=== PATIENT | female | born 1945 | race Caucasian/White ===

== ENCOUNTER → 2020-06-02 12:49 | Outpatient (BNVA) | payer OTHER, SELFPAY | PROVIDERS: Visit Provider Nurse Practitioner Family | DX: J11.1 Influenza due to unidentified influenza virus with other respiratory manifestations (principal); J40 Bronchitis, not specified as acute or chronic | CPT/HCPCS: 87400 ==

== ENCOUNTER → 2020-07-16 09:50 | Outpatient (BNVA) | payer OTHER, SELFPAY | PROVIDERS: Visit Provider Emergency Medicine | DX: J40 Bronchitis, not specified as acute or chronic (principal); R05 Cough | CPT/HCPCS: 71046 ==

== ENCOUNTER 2021-02-08 10:19 | Inpatient (IN) | payer MEDICARE, SELFPAY ==
[2021-02-08] VITALS (7 sets, daily range): BP systolic 109–150; BP diastolic 46–85; PULSE 38–80; RESP 14–20; TEMP 37.1; O2SAT 92–96; BMI 46.2
--- NOTE | 2021-02-08 05:00 | USCV_ITS ---
Ilacole Malena Age: 75 Gender: F : 1945 Exam Date: 02/08/2021 21:12 Ordering Phys: Bashir Reynoso MD Technologist: Vira Koo [place] [facility] [place]ication: CHRISTA BP: / HR: 47 Rhythm: Sinus Technical Quality: Adequate MEASUREMENTS (Male / Female) Normal Values 2D ECHO LV Diastolic Diameter PLAX 3.7 cm 4.2 - 5.9 / 3.9 - 5.3 cm LV Systolic Diameter PLAX 2.1 cm LV Chamber Size 3.1 cm IVS Diastolic Thickness 1.7 cm 0.6 - 1.0 / 0.6 - 0.9 cm IVS Systolic Thickness 1.1 cm LVPW Diastolic Thickness 1.5 cm 0.6 - 1.0 / 0.6 - 0.9 cm LVPW Systolic Thickness 1.5 cm RV Chamber Size 3.5 cm LVOT Diameter 2.1 cm LV Ejection Fraction 2D Teich 75.8 % LV Ejection Fraction MOD 2C 23.9 % LV Ejection Fraction 2C AL 20.4 % LA Diameter 3.5 cm LA Width 4.3 cm LA Height 5.5 cm RA Width 3.4 cm RA Height 4.4 cm Aorta at Sinotubular Diameter 3.1 cm M-MODE LV Diastolic Diameter MM 4.8 cm 4.2 - 5.9 / 3.9 - 5.3 cm LV Systolic Diameter MM 3.1 cm LV Ejection Fraction MM Teich 66.3 % IVS Diastolic Thickness MM 1.2 cm 0.6 - 1.0 / 0.6 - 0.9 cm IVS Systolic Thickness MM 1.8 cm LVPW Diastolic Thickness MM 1.3 cm 0.6 - 1.0 / 0.6 - 0.9 cm LVPW Systolic Thickness MM 1.8 cm Aortic Annulus Diameter 3.8 cm LA Ao Ratio MM 1.1 MV E Point Septal Separation 0.8 cm DOPPLER AV Peak Velocity 270.0 cm/s LVOT Peak Velocity 127.0 cm/s AV Area Cont Eq vti 2.1 cm squared AV Area Cont Eq pk 1.6 cm squared MV Area PHT 2.2 cm squared Mitral E to A Ratio 1.3 MV E' Velocity 66.0 cm/s Mitral E to MV E' Ratio 17.9 Mitral E to LV E' Lateral Ratio 24.9 Mitral E to LV E' Septal Ratio 13.9 TR Peak Velocity 231.8 cm/s TR Peak Gradient 21.5 mmHg TR Mean Velocity 152.0 cm/s TR Mean Gradient 12.4 mmHg TR Velocity Time Integral 56.5 cm TV Peak E Velocity 77.0 cm/s Right Atrial Pressure 3.0 mmHg Pulmonary Artery Systolic Pressu 24.5 mmHg PV Peak Velocity 89.0 cm/s RV Acceleration Time 0.1 s RV Ejection Time 0.4 s RV AcT/ET 0.3 FINDINGS Left Ventricle Normal left ventricular size and systolic function, EF 75 %( visual). Mild left ventricular hypertrophy. No regional wall motion abnormalities. Grade III/IV diastolic dysfunction (restrictive filling pattern), severely elevated filling pressures. Right Ventricle The right ventricle is normal in size and function. Right Atrium The right atrium is normal in size. Left Atrium The left atrium is normal in size. Mitral Valve Thickened mitral valve. Mild mitral annular calcification. Aortic Valve Mild aortic valve stenosis with a peak velocity of 2.7 m/s with, peak gradient of 29 mmHg and a mean gradient of 13 mmHg. Valve area was 2.1 cm squared Tricuspid Valve Trace tricuspid valve regurgitation. Pulmonic Valve Pulmonic valve not well visualized. Pericardium Normal pericardium without effusion. Aorta Normal ascending aorta dimension. CONCLUSIONS Normal left ventricular size and systolic function, EF 75 %( visual). Mild left ventricular hypertrophy. No regional wall motion abnormalities. Grade III/IV diastolic dysfunction (restrictive filling pattern), severely elevated filling pressures. Mild aortic valve stenosis with a peak velocity of 2.7 m/s with, peak gradient of 29 mmHg and a mean gradient of 13 mmHg. Valve area was 2.1 cm squared. Thickened mitral valve. Mild mitral annular calcification. Trace tricuspid valve regurgitation. Estimated pulmonary artery peak systolic pressure of 25 mmHg There is no pericardial effusion. There are no intracardiac masses. No similar previous studies are available for comparison Dr Inocencio Hicks MD [facility] (Electronically Signed) Final Date: 09 February 2021 09:14 S
--- NOTE | 2021-02-08 10:45 | ECG_ITS ---
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 Measurements Intervals Brady Rate: 38 P: [place]: QRS: 194 QRSD: 96 T: 147 QT: 463 QTc: 372 Interpretive Statements SUPRAVENTRICULAR BRADYCARDIA INCOMPLETE RIGHT BUNDLE BRANCH BLOCK [90+ ms QRS DURATION, TERMINAL R IN V1/V2, 40+ ms S IN I/aVL/V4/V5/V6] POSSIBLE RIGHT VENTRICULAR HYPERTROPHY [SOME/ALL OF: PROMINENT R IN V1, LATE TRANSITION, RAD, ANNA, SSS] No previous ECG available for comparison Electronically Signed On 02-11-2021 7:47:09 CDT by Janine Burris M.D. [id number]
--- NOTE | 2021-02-08 10:45 | XRR_ITS ---
PROCEDURE INFORMATION: Exam: XR Chest Exam date and time: 02/08/2021 10:45 AM Age: 75 years old Clinical indication: Cardiovascular condition or disease; Other: Bradycardia; Patient HX: Low hr. PT has cpr pads in place TECHNIQUE: Imaging protocol: XR of the chest. Views: 1 view. COMPARISON: CR XR chest 2V* [id number] 07/16/2020 10:04 AM FINDINGS: Lungs: No pulmonary vascular congestion or pulmonary edema. Pleural spaces: No pleural effusion or pneumothorax. Heart/Mediastinum: The cardiac silhouette is not felt to be enlarged when allowing for left epicardial fat pad. Calcified mediastinal lymph nodes from prior granulomatous disease. Bones/joints: No acute osseous abnormality. XR/XR chest 1V portable [id number] IMPRESSION: No acute finding.
--- NOTE | 2021-02-08 10:47 | ED_ITS ---
HPI - Arrhythmia/Palpitations General: Chief Complaint: ER Hold Stated Complaint: bradycardia Time Seen by Provider: 02/08/21 10:24 History of Present Illness: HPI narrative: 75-year-old female sent to the emergency room by her primary care doctor. She is not been feeling well last couple days and is noted her blood pressure being exceptionally low she usually takes atenolol she last took it yesterday has not taken any today she was seen at her doctor's office today and had a heart rate in the 30s. EMS was called her physician called here to report ahead. EMS on arrival reports he gave a half a milligram of atropine 1 hour before she arrived here initially she was in the 30s with a blood pressure of 80 systolic. On arrival here blood pressures over 100 and her heart rates in the 40s and 50s however began to deteriorate shortly after arrival to the 30s with a blood pressure in the 90s. She has some mild chest discomfort. She has a history of congestive heart failure but does not appear to be decompensated at this time. MD complaint: irregular heart beat Onset (ago): hour(s) Duration: constant Severity: severe Context: occurred during rest Associated symptoms: Deny anxiety, cough, diaphoresis, muscle cramps, nausea, paresthesias, pre-syncope, sense of impending doom, short of breath, syncope or vomiting Treatments prior to arrival: other (Atropine) Review of Systems 2 Const: Denies: diaphoresis ENMT: Denies: throat pain, ear or mastoid pain, nasal discharge or nasal congestion Card: Denies: syncope or pre-syncope Resp: Denies: dyspnea, productive cough or non-productive cough GI: Denies: nausea or vomiting : Denies: flank pain, difficulty voiding, dysuria, urinary frequency or urinary urgency Musc: Denies: muscle cramps Skin/Breast: Denies: rash or pruritus Psych: Denies: anxiety PFSH ED PFSH: Medical History Asthma CHF (congestive heart failure) DJD (degenerative joint disease) Fibromyalgia GERD (gastroesophageal reflux disease) History of COVID-19 Hypertension Hypothyroid Obesity Surgical History History of History of cholecystectomy History of shoulder surgery Family History Other Dementia Social History Smoking and tobacco status: never smoked Alcohol intake: never Female Reproductive History: Spontaneous abortions: No Physical Exam Const: COMMON NORMALS: no acute distress GENERAL APPEARANCE: cooperative and comfortable ORIENTATION/CONSCIOUSNESS: Yes awake, Yes oriented to person, Yes oriented to place and Yes oriented to time HENMT: COMMON NORMALS: normocephalic, atraumatic and hearing grossly normal bilaterally HEAD & SCALP: normocephalic and atraumatic Neck/C-Spine: COMMON NORMALS: no JVD Resp: COMMON NORMALS: normal respiratory effort, No retractions, No use of accessory muscles and clear to auscultation bilaterally AUSCULTATION: clear to auscultation bilaterally Cardio: COMMON NORMALS: no JVD, regular rate, regular rhythm and No murmurs present (Cardio) RATE: regular rate RHYTHM: regular rhythm GI: COMMON NORMALS: Soft to palpation and No hepatosplenomegaly present AUSCULTATION: Yes normoactive bowel sounds PALPATION: Yes Soft to palpation, No Tenderness to palpation present (GI), No Guarding due to palpation present (GI) and Yes No hepatosplenomegaly present Extremity: COMMON NORMALS: normal to inspection, capillary refill normal, no clubbing, cyanosis or edema, no calf tenderness and no pedal edema Neuro: SENSORIUM/ORIENTATION: Yes oriented to person, Yes oriented to place and Yes oriented to time Skin: COMMON NORMALS: no rashes or lesions noted GENERAL SKIN EXAM: no rashes or lesions noted Course Vital Signs: Vital signs: Vital Signs Temperature 98.0 F 02/09/21 14:47 Pulse Rate 64 02/09/21 15:29 Respiratory Rate 20 H 02/09/21 15:29 Blood Pressure 101/86 02/09/21 15:29 Pulse Oximetry 94 02/09/21 15:29 MDM - Arrhythmia/Palpitations MDM Narrative: Medical decision making narrative: Patient profoundly bradycardic and hypotensive on arrival she been given atropine in route did raise her blood pressure and her heart rate however as it wore off over time she began to become hypotensive and bradycardic again. She was started on dopamine and titrated up for blood pressure greater than 90 degree systolic. She otherwise is doing well her last dose of atenolol was yesterday. We'll hold the atenolol admit to hospitalist and consult cardiology. Reviewed EKGs with Dr. Hicks. He will see the patient in the emergency room. 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
--- NOTE | 2021-02-08 11:08 | PC.PHAR ---
pt states she takes care of her own medications-pt states she doesnt use inhalers often ext med history shows flovent last filled 07/16/20-pt states she has a proair inhaler doesnt show when last filled on ext med history
[2021-02-08] MEDS: DOPamine drip 400 MG/250 ML PREMIX 22.2 MG IV (11:09)
--- NOTE | 2021-02-08 11:57 | P.HP_ITS ---
Providers/Chief Complaint Primary Care Provider: Tonie Ruff NP Chief Complaint: bradycardia History of Present Illness Malena Stewart is a 75 year old female that presents to the emergency department with complaints of nausea as well as findings of low heart rate. She denies any chest discomfort. She feels as if she cannot get a really deep breath. She has had no vomiting. No diarrhea. Reports no exposure to Covid that she is aware of, and has not been vaccinated. She has had Covid previously over 6 months ago. No current fever cough or congestion. Last dose of atenolol was yesterday morning. In the emergency department, dopamine was started and laboratory ordered. Review of Systems General: Reports: 10 or more systems reviewed and unremarkable except in HPI and below Const: Reports: fatigue; Denies: fever(s) or chills Eyes: Denies: change in vision ENMT: Denies: throat pain Card: Reports: dyspnea on exertion; Denies: chest pain Resp: Reports: dyspnea; Denies: productive cough or non-productive cough GI: Reports: nausea; Denies: abdominal pain or vomiting : Denies: flank pain Musc: Denies: neck pain Skin/Breast: Denies: rash Neuro: Denies: headache(s) Psych: Denies: anxiety or depression Endo: Denies: polyuria Yaya/Lymph: Denies: easy bruising All/Imm: Denies: urticaria Medications/Allergies Home Medications Medication Instructions Recorded Confirmed Last Taken Type albuterol sulfate 90 mcg/actuation 2 puff INHALATION Q6H PRN 07/16/20 02/08/21 Unknown History aerosol inhaler Vitamin D3 1 cap PO DAILY 02/08/21 02/08/21 Unknown History ascorbic acid (vitamin C) [Vitamin 500 mg PO BID 02/08/21 02/08/21 02/07/21 History C] atenolol 50 mg tablet 50 mg PO QAM 02/08/21 02/08/21 02/07/21 History fluticasone propionate [Flovent 2 inh INHALATION BID PRN 02/08/21 02/08/21 Unknown History HFA] furosemide 40 mg tablet 40 mg PO QAM 02/08/21 02/08/21 02/08/21 07:00 History glucos sul [id number] 1 cap PO TID 02/08/21 02/08/2102/07/21 History [Glucosamine Chondroitin] levothyroxine 100 mcg PO QAM 02/08/21 02/08/21 02/08/21 07:00 History magnesium oxide 400 mg PO TID 02/08/21 02/08/21 02/07/21 History pantoprazole 20 mg PO QAM 02/08/21 02/08/21 02/07/21 History potassium chloride 10 mEq 10 meq PO QAM 02/08/21 02/08/21 02/07/21 History tablet,extended release Allergies Allergy/AdvReac Type Severity Reaction Status Date / Time No Known Allergies Allergy Verified 02/08/21 11:08 PFSH Acute PFSH: Medical History (Updated 02/08/21 @ 12:08 by Bashir Reynoso MD) Asthma CHF (congestive heart failure) DJD (degenerative joint disease) Fibromyalgia GERD (gastroesophageal reflux disease) History of COVID-19 Hypertension Hypothyroid Obesity Surgical History (Updated 02/08/21 @ 12:00 by Bashir Reynoso MD) History of History of cholecystectomy History of shoulder surgery Family History (Updated 02/08/21 @ 12:00 by Bashir Reynoso MD) Other Dementia Social History Smoking and tobacco status: never smoked Alcohol intake: never Female Reproductive History: Spontaneous abortions: No Vitals/I&O/Wt Last Vital Signs Temp 98.7 F 02/08/21 10:40 Pulse 38 L 02/08/21 10:45 Resp 14 02/08/21 10:45 BP 121/85 02/08/21 10:45 Pulse Ox 95 02/08/21 10:45 02/07/21 02/08/21 02/08/21 22:59 06:59 14:59 Intake Total 8.51 / 8.51 Balance 8.51 / 8.51 Weight last 48 hrs Weight 118.388 kg Physical Exam Narrative: EXAM NARRATIVE: General exam is an obese white female in no apparent distress HEENT: Pupils equally round. Oropharynx clear. Neck is supple no lymphadenopathy or thyromegaly Cardiovascular initially bradycardic and regular. Currently still bradycardic with a heart rate of around 55. No murmur. Lungs clear no wheezing or crackles Abdomen is soft with positive bowel sounds. Obese. No no obvious organomegaly. is deferred Extremities no cyanosis clubbing. Trace edema is present. Cap refill brisk. Skin no rash Neuro no obvious focal deficits. Data Other data: CBC, CMP, CK, TSH have been ordered Check magnesium level as well Chest x-ray by my read demonstrates granulomatous disease, some atherosclerosis in the aorta. Initial EKG with a heart rate of 38, normal axis, supraventricular rhythm but no P waves seen. Incomplete right bundle. A&P Assessment and plan (1) Bradycardia: Admission to ICU Significant bradycardia Cardiology consultation Patient has been put on dopamine and heart rate is increased to the mid 50s. However, she still has some nausea Await laboratory, troponins, serial EKGs Check magnesium level, TSH N.p.o. for now, in case temporary pacemaker is needed Status: Acute (2) Asthma: No evidence of exacerbation Albuterol as needed Status: Acute Qualifiers: Asthma severity: moderate Asthma persistence: persistent Asthma complication type: uncomplicated Qualified Code(s): J45.40 - Moderate persistent asthma, uncomplicated (3) Hypertension: Hold beta-blockers currently Status: Acute Qualifiers: Hypertension type: essential hypertension Qualified Code(s): I10 - Essential (primary) hypertension (4) Hypothyroid: Check TSH Status: Acute (5) GERD (gastroesophageal reflux disease): Continue Protonix Status: Acute Additional A&P Information Full code SCDs for DVT prophylaxis as well as Lovenox. Check rapid Covid Attestations Medical Necessity Statement*: Will need greater than 2 midnight stay for treatment of severe bradycardia, symptomatic. Time Spent in Patient Care: Greater than 35 minutes Critical Care Time: Critical Care Time (min): 49 Other Attestations: The high probability of a clinically significant, sudden o r life threatening deterioration of the patient's [cardiac] system(s) required my full and direct attention, intervention and personal management. The critical care time is as shown. 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
--- NOTE | 2021-02-08 12:45 | ECG_ITS ---
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 Measurements Intervals Bagley Rate: 51 P: 67 SC: 160 QRS: 58 QRSD: 88 T: 78 QT: 410 QTc: 378 Interpretive Statements SINUS BRADYCARDIA POSSIBLE RIGHT VENTRICULAR CONDUCTION DELAY [RSR (QR) IN V1/V2] SEPTAL MYOCARDIAL INFARCTION [40+ ms Q WAVE IN V1/V2], OF INDETERMINATE AGE Compared to ECG 02/08/2021 10:38:37 Myocardial infarct finding now present Incomplete right bundle-branch block no longer present Atrial abnormality no longer present Electronically Signed On 02-08-2021 17:31:42 CDT by Christian Davenport M.D. [id number]
[2021-02-08] MEDS: promethazine 25 mg/mL SDV 1 mL IM (13:14)
--- NOTE | 2021-02-08 13:27 | P.CONIM_ITS ---
Providers/Reason For Consult Consulting Physician/Specialty*: PHOEBE Hicks MD/cardiology Reason for Consult*: Patient with bradycardia and hypotension Requesting Physician: Dr. Daigle Primary Care Provider: Tonie Ruff NP History of Present Illness History of Present Illness Malena Stewart is a 75 year old female with a longstanding history of hypertension, hypothyroidism and peripheral edema, was seen by her primary care provider today where she presented with complaints of shortness of breath and weakness. According the patient, she started feeling weak and more short of breath yesterday morning. Her heart rate was in the 30s. The blood pressure was in the low 90s. She continued to have the symptoms throughout yesterday. This morning as she woke up, she was still having the shortness of breath and low oxygen level. Her oxygen was in the 80s, based on the oximetry. Heart rate was in the 30s. For these symptoms, she was seen by the primary care provider. She was found to be bradycardic with a heart rate in the 30s and systolic blood pressure was in the 80s. She was given 1 dose of atropine. Her heart rate went up into the 60s. She was brought to the emergency room for further evaluation and management. In the emergency room, she again was found to be bradycardic with a heart rate in the 30s. Her blood pressure was in the low 90s. She was started on IV dopamine. Currently the blood pressure is 136/60 with a heart rate of 62. She is on dopamine of 7.5 mics per KG per minute. She is complaining of some nausea and abdominal discomfort. Denies any chest pain or chest tightness. Has a baseline shortness of breath. No orthopnea. History of lower extremity swelling for the last couple of years. It has been gradually getting worse. Recently she was given a stronger diuretic, as per patient. She is currently taking Lasix 40 mg daily with potassium 20 mEq p.o. daily. She has been taking atenolol 50 mg daily for the last many years. No recent medication changes for the blood pressure. She has no fever, chills or cough. She had the COVID-19 infection in May of last year. Her symptoms were lingering around for 2 months or so. According to the patient, she never went back to her normal state after this infection. She seems to think that the COVID-19 infection affected her lungs and her throat . Currently she has no fever. No dysuria. No headache or blurring of vision. Patient denies any smoking abuse or alcohol abuse. Mother had congestive heart failure. No other relevant family history. Review of Systems Narrative: CONSTITUTIONAL: No fever or chills. EYES: No blurring of vision or other visual disturbances lately. ENT: No hoarseness of voice, auditory disturbances or sore throat. CARDIOVASCULAR: As mentioned above. RESPIRATORY: As of breath as mentioned above GASTROINTESTINAL: History of GERD GENITOURINARY: No dysuria or hematuria. INTEGUMENTARY: No skin rashes or history of skin cancer. NEURO: No transient ischemic attacks or amaurosis. PSYCHIATRIC: No history of psychosis or major depression. HEMATOLOGIC: No bleeding disorders or significant anemia. ENDOCRINE: History of hypothyroid MUSCULOSKELETAL: History of degenerative joint disease ALLERGY/IMMUNOLOGY: As mentioned above. Meds/Allergies Home Medications and Allergies Home Medications Medication Instructions Recorded Confirmed Last Taken Type albuterol sulfate 90 mcg/actuation 2 puff INHALATION Q6H PRN 07/16/20 02/08/21 Unknown History aerosol inhaler Vitamin D3 1 cap PO DAILY 02/08/21 02/08/21 Unknown History ascorbic acid (vitamin C) [Vitamin 500 mg PO BID 02/08/21 02/08/21 02/07/21 History C] atenolol 50 mg tablet 50 mg PO QAM 02/08/21 02/08/21 02/07/21 History fluticasone propionate [Flovent 2 inh INHALATION BID PRN 02/08/21 02/08/21 Unknown History HFA] furosemide 40 mg tablet 40 mg PO QAM 02/08/21 02/08/21 02/08/21 07:00 History glucos sul [id number]-C-Mn 1 cap PO TID 02/08/21 02/08/21 02/07/21 History [Glucosamine Chondroitin] levothyroxine 100 mcg PO QAM 02/08/21 02/08/21 02/08/21 07:00 History magnesium oxide 400 mg PO TID 02/08/21 02/08/21 02/07/21 History pantoprazole 20 mg PO QAM 02/08/21 02/08/21 02/07/21 History potassium chloride 10 mEq 10 meq PO QAM 02/08/21 02/08/21 02/07/21 History tablet,extended release Allergies Allergy/AdvReac Type Severity Reaction Status Date / Time No Known Allergies Allergy Verified 02/08/21 11:08 Current Medications Current Medications Generic Name Dose Route Start Last Admin Trade Name Angelica PRN Reason Stop Dose Admin Dopamine HCl/Dextrose 400 mg in 250 mls @ 22.198 mls/hr 02/08/21 11:00 02/08/21 11:32 Intropin Drip IV 7.5 mcg/kg/min CONT MARIANA 33.3 mls/hr Titration Protocol 5 MCG/KG/MIN PFSH Acute PFSH: Medical History Asthma CHF (congestive heart failure) DJD (degenerative joint disease) Fibromyalgia GERD (gastroesophageal reflux disease) History of COVID-19 Hypertension Hypothyroid Obesity Surgical History History of History of cholecystectomy History of shoulder surgery Family History Other Dementia Social History Smoking and tobacco status: never smoked Alcohol intake: never Female Reproductive History: Spontaneous abortions: No Vitals/I&O/Wt Last Vital Signs Temp 98.7 F 02/08/21 10:40 Pulse 38 L 02/08/21 10:45 Resp 14 02/08/21 10:45 BP 121/85 02/08/21 10:45 Pulse Ox 95 02/08/21 10:45 02/07/21 02/08/21 02/08/21 22:59 06:59 14:59 Intake Total 8.51 / 8.51 Balance 8.51 / 8.51 Weight last 48 hrs Weight 261 lb Physical Exam Narrative: EXAM NARRATIVE: GENERAL: The patient is alert and oriented times three. Not in any acute distress. HEENT: No significant pallor, icterus or lymphadenopathy. The pupils are reactant to light. Oral cavity: There are no mucous membrane lesions. Funduscopic examination: The fundus is not visualized NECK: Trachea appears to be central. No masses noted. No JVD or thyromegaly appreciated. No carotid bruit. RESPIRATORY: Chest is symmetrical. No intercostals muscle retraction or any accessory muscle activation. There is no chest wall tenderness. Breath sounds are heard bilaterally. No rales or rhonchi heard. No evidence of any consolidation. BREASTS: Deferred. HEART: The PMI could not be palpated. No palpable precordial events. S1 and S2 are normal. No S3 or S4 heard. No pericardial rub or any click heard. Short systolic murmur at the base of the heart with no diastolic murmurs. No pericardial rub ABDOMEN: No vessel pulsations or distention. No tenderness. No organomegaly appreciated. No abdominal bruit. Bowel sounds are normally heard. : Deferred. RECTAL: Deferred. LYMPHATIC: No lymphadenopathy noted in the neck or groin. EXTREMITIES: No edema or cyanosis. No clubbing. The pulses are symmetrical bilaterally. The radial, femoral, dorsalis pedis and the posterior tibial pulses are palpated and found to be in good volume and amplitude. MUSCULOSKELETAL: No acute joint deformities or swelling SKIN: There are no significant scars or skin rash noted. NEUROPSYCHIATRIC: The patient is alert and oriented x3. Appears to be in a good mood. The higher functions are grossly within normal limits. No tremors or rigidity noted. Data Imaging^: CXR: My impression: Normal cardiac silhouette with no lung infiltrate. Calcified mediastinal lymph nodes. No acute pathology noted EKG^: EKG 1: My Interpretation: The EKG shortness of breath ventricular bradycardia most likely junctional with a heart rate of 32 bpm. A&P Assessment and plan (1) Symptomatic bradycardia: Most likely the patient may have underlying sinus alise/AV alise disease. The atenolol might be making it worse. Currently she is off the atenolol. Her blood pressure and heart rate seems to be responding to the atropine/dopamine. At this point, I may hold off on a temporary pacer insertion. After 24 to 48 hours, I am hoping the heart rate will return to the normal range. If she continues to be bradycardic even after 48 hours, may need to consider permanent pacer implantation. For the time being, she may be continued on the IV dopamine and IV fluid. The dopamine dose may be titrated down to maintain the heart rate above 50. We will go ahead and do the basic labs including the thyroid profile Status: Acute (2) Benign essential hypertension with target blood pressure below 140/90: The blood pressure is fairly under control. We may start her on an CAROLIN inhibitor or ARB for the blood pressure control. Status: Acute (3) Edema, peripheral: Etiology is not clear. We may do an echocardiogram to evaluate the LV function. Also will do a BNP. Consider careful IV diuresis. Status: Acute (4) GERD (gastroesophageal reflux disease): Patient is on Protonix. This may be continued. Status: Acute Qualifiers: Esophagitis presence: esophagitis presence not specified Qualified Code(s): K21.9 - Gastro-esophageal reflux disease without esophagitis (5) Hypothyroid: The thyroid profile needs to be checked. Status: Acute Qualifiers: Hypothyroidism type: acquired Qualified Code(s): E03.9 - Hy pothyroidism, unspecified (6) Chronic kidney disease: Patient may have underlying chronic renal disease. The baseline kidney function is no known Status: Acute Additional A&P Information I will hold off on the atenolol at this time. May continue on the Protonix. Lasix and potassium may be given on a as needed basis. After reviewing the above and also based on the patient's the clinical progress, further recommendations will be made. Thank for the opportunity to evaluate this patient make these recommendation Coding Level of Care Code Acute [employer] for Greg Fwana History Detailed Exam Detailed Medical Decision Making Moderate Complexity Diagnoses Symptomatic bradycardia R00.1 Benign essential hypertension with target blood pressure below 140/90 I10 Edema, peripheral R60.9 GERD (gastroesophageal reflux disease) K21.9 Esophagitis presence: esophagitis presence not specified Hypothyroid E03.9 Hypothyroidism type: acquired Chronic kidney disease N18.9
--- NOTE | 2021-02-08 13:51 | XRR_ITS ---
PROCEDURE INFORMATION: Exam: XR Chest Exam date and time: 02/08/2021 1:51 PM Age: 75 years old Clinical indication: Cough and dyspnea; Additional info: Dyspnea/cough TECHNIQUE: Imaging protocol: XR of the chest. Views: 1 view. COMPARISON: CR XR chest 1V portable [id number] 02/08/2021 10:46 AM FINDINGS: Lungs: The lung volumes are low. No significant lung consolidation. Pleural spaces: Unremarkable. No pleural effusion. No pneumothorax. Heart/Mediastinum: There are right paratracheal mediastinal calcifications. Bones/joints: Unremarkable. XR/XR chest 1V portable [id number] IMPRESSION: There are no acute concerning abnormalities.
--- NOTE | 2021-02-08 13:55 | PC.NURSE ---
PT O2 SATURATION AT 87. PLACED ON 2L NASAL CANNULA. O2 SATURATION RETURNED TO 91% WILL CONTINUE TO MONITOR
[2021-02-08] MEDS: enoxaparin 40 mg/0.4 mL Syringe SUBCUT (14:38)
[2021-02-08 15:13] LABS: SARS Covid-2 Antigen Negative (Negative)
--- NOTE | 2021-02-08 15:19 | PC.NURSE ---
ON PHYSICAL ASSESSMENT PT NOTED TO BE CONTINENT OF URINE AND BOWELS WITH THE EXCEPTION OF LEAKING URINE WHEN SHE COUGHS. PT ALSO C/O NAUSEA WHEN HER HR DROPS AND HAD BRUISING PRESENT ON HER LEGS.
--- NOTE | 2021-02-08 15:40 | PC.NURSE ---
PT'S RAPID ANTIGEN COVID SWAB NEGATIVE, PT DOES NOT HAVE COVID LIKE SYMPTOMS, TEST DONE FOR HOSPITAL ADMISSION. PT TO BE TAKEN OFF OF PRECAUTIONS PER MD.
[2021-02-08 15:58] LABS: Add Urine Microscopic? YES; Bilirubin Urine Neg (Negative); Blood Urine Neg (Negative); Glucose Urine UA Norm (Normal); Ketones Urine Negative (Negative); Leukocyte Esterase Urine Negative (Negative); Nitrate Urine Positive (Negative); Protein Urine Neg (Negative); Urine Appearance SL Hazy (CLEAR); Urine Color Yellow (Yellow); Urobilinogen Urine Norm (Negative); pH Urine 5 (5-7)
[2021-02-08 15:59] LABS: RBC Urine RARE /hpf (0-2); Squamous Epithelial Cell Urine 0-4 /hpf (0-5); WBC Urine RARE /hpf (0-5)
[2021-02-08 16:03] LABS: Bacteria Urine 2+ /hpf
[2021-02-08 16:04] LABS: Add Urine Culture? Yes
[2021-02-08 16:22] LABS: Basophils # 0.1 10^3/uL (0.0-0.1); Basophils % 0.4 %; Eosinophils # 0.1 10^3/uL (0.0-0.8); Eosinophils % 0.5 %; Hematocrit 40.3 % (37.0-47.0); Hemoglobin 12.7 g/dL (11.5-15.3); Lymphocytes % 8.1 %; Mean Corpuscular HGB Conc 31.5 g/dL (30.0-36.0); Mean Corpuscular Hemoglobin 30.5 pg (28.0-34.0); Mean Corpuscular Volume 96.6 fL (81-99); Mean Platelet Volume 11.4 fL (7.4-10.4); Monocytes # 0.8 10^3/uL (0.2-0.9); Monocytes % 6.1 %; Neutrophils # 10.32 10^3/uL (1.8-7.7); Neutrophils % 84.1 %; Nucleated Red Blood Cells % 0 %; Platelet Count 143 10^3/cmm (130-400); Red Blood Count 4.17 10^6/uL (4.1-5.3); Red Cell Distribution Width 14.1 % (12.1-15.1); White Blood Count 12.3 10^3/uL (4.0-10.0)
--- NOTE | 2021-02-08 16:45 | ECG_ITS ---
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 Measurements Intervals [place] Rate: 46 P: -89 MS: 136 QRS: 25 QRSD: 86 T: 53 QT: 452 QTc: 399 Interpretive Statements JUNCTIONAL BRADYCARDIA WITH OCCASIONAL SUPRAVENTRICULAR PREMATURE COMPLEXES Compared to ECG 02/08/2021 14:20:37 Sinus bradycardia no longer present Myocardial infarct finding no longer present Electronically Signed On 02-11-2021 10:06:04 CDT by Janine Burris M.D. [email or web address]miolake[facility].[employer]/store/OM/[id number]
[2021-02-08 17:02] LABS: Alanine Aminotransferase 51 U/L (0-33); Albumin Level 4.2 g/dL (3.5-5.2); Alkaline Phosphatase 86 IU/L (35-105); Aspartate Amino Transferase 40 U/L (0-32); Blood Urea Nitrogen 38 mg/dL (8-23); Calcium 8.7 mg/dL (8.5-10.5); Carbon Dioxide 24 mmol/L (22-29); Chloride 99 mmol/L (98-107); Creatine Phosphokinase 106 U/L (26-192); Globulin 3.4 g/dL (1.3-4.6); Glucose 139 mg/dL (65-115); Magnesium 2.8 mg/dL (1.7-2.3); Thyroid Stimulating Hormone 0.82 uIU/mL (0.27-4.20); Total Bilirubin 0.8 mg/dL (0.15-1.2); Total Protein 7.6 g/dL (6.6-8.7)
[2021-02-08 17:16] LABS: Anion Gap 18.4 (5-19); Osmolality Calculated 295 mOsm/kg (285-295); Potassium 4.4 mmol/L (3.5-5.1); Sodium 137 mmol/L (136-145)
[2021-02-08 17:40] LABS: Troponin(5th) Baseline 44 ng/L (0-10)
[2021-02-08 18:59] LABS: Troponin 5 2HR 42.39 ng/L (0-10)
[2021-02-08] MEDS: sodium chloride 0.9% 250 ML IV (19:00)
[2021-02-08 19:02] LABS: Troponin 5 2HR Delta -1.61 ABS# (0-10)
[2021-02-08 19:29] LABS: NT Pro B Type Natriuretic Pept 3270 pg/mL (0-450)
--- NOTE | 2021-02-08 19:43 | PC.NURSE ---
Dr. Hicks called to ask if patient had had his echo. advised that she had not, that the order was timed for [address] Hicks asked if we could notify us to come do echo at this time. also advised to please maintain dopamine at 5 mcg/kg/min to attempt to maintain HR at 50 or above. advised that dop had been on 7.5 mcg/kg/min but would titrate to 5 and observe pt HR at 5 mcg/kg/min.
[2021-02-08] MEDS: sodium chloride 0.9% 1,000 ML 100 ML IV (20:49)
[2021-02-08 22:01] LABS: Glucose Point of Care 155 mg/dL (70-110)
[2021-02-08 22:11] LABS: Troponin 5 6HR 33.94 ng/L (0-10)
[2021-02-09] VITALS (20 sets, daily range): BP systolic 99–149; BP diastolic 48–86; PULSE 54–91; RESP 17–25; TEMP 36.7; O2SAT 91–98
[2021-02-09 03:49] LABS: Basophils % 0.2 %; Eosinophils % 0.3 %; Hematocrit 36.7 % (37.0-47.0); Hemoglobin 11.6 g/dL (11.5-15.3); Lymphocytes # 1.1 10^3/uL (0.8-4.8); Lymphocytes % 10.7 %; Mean Corpuscular HGB Conc 31.6 g/dL (30.0-36.0); Mean Corpuscular Hemoglobin 30.5 pg (28.0-34.0); Mean Corpuscular Volume 96.6 fL (81-99); Mean Platelet Volume 11.7 fL (7.4-10.4); Neutrophils # 8.34 10^3/uL (1.8-7.7); Neutrophils % 79.4 %; Nucleated Red Blood Cells % 0 %; Platelet Count 129 10^3/cmm (130-400); White Blood Count 10.5 10^3/uL (4.0-10.0)
[2021-02-09 04:20] LABS: Alanine Aminotransferase 45 U/L (0-33); Albumin Level 3.8 g/dL (3.5-5.2); Alkaline Phosphatase 72 IU/L (35-105); Anion Gap 12.8 (5-19); Aspartate Amino Transferase 33 U/L (0-32); Blood Urea Nitrogen 35 mg/dL (8-23); Calcium 8.3 mg/dL (8.5-10.5); Carbon Dioxide 27 mmol/L (22-29); Chloride 103 mmol/L (98-107); Globulin 2.8 g/dL (1.3-4.6); Glucose 116 mg/dL (65-115); Osmolality Calculated 295 mOsm/kg (285-295); Potassium 4.8 mmol/L (3.5-5.1); Sodium 138 mmol/L (136-145); Total Bilirubin 0.6 mg/dL (0.15-1.2); Total Protein 6.6 g/dL (6.6-8.7)
--- NOTE | 2021-02-09 07:36 | PC.NURSE ---
Per Dr Reynoso, Dopamine drip was decreased to 2.5mcg at 0737.
[2021-02-09] MEDS: levothyroxine 100 mcg Tablet PO (08:25)
--- NOTE | 2021-02-09 09:15 | PC.NURSE ---
Dopamine stopped at this time per Dr. Reynoso.
--- NOTE | 2021-02-09 09:20 | PM.PN ---
Subjective Subjective: Interval history: Patient is feeling better. She is currently on dopamine of 2.5 mics per KG per minute. Her heart rate is in the low 60s. She had echocardiogram which revealed normal LV size ejection fraction. She has mild aortic valve stenosis. Her troponin T was elevated at the baseline. Most likely related to the hypotension and bradycardia. She has a negative delta. Patient denies any chest pain or chest tightness. Medications: Reviewed: Yes Medication Review Details: Current Medications Acetaminophen (Acetaminophen 325 Mg Tablet) 650 mg PO Q6H PRN PRN Reason: MILD PAIN Albuterol Sulfate (Albuterol 8 Gm Mdi) 2 puff INHALATION Q6H.RESPIRATORY PRN PRN Reason: Shortness Of Breath Enoxaparin Sodium (Enoxaparin 40 Mg/0.4 Ml Syringe) 40 mg SUBCUT Q24H [facility] Last Admin: 02/08/21 14:38 Dose: 40 mg Documented by: Dopamine HCl/Dextrose (Intropin Drip) 400 mg in 250 mls @ 22.198 mls/hr IV CONT MARIANA; Protocol Last Titration: 02/08/21 19:45 Dose: Infused Documented by: Sodium Chloride (Sodium Chloride 0.9%) 1,000 mls @ 100 mls/hr IV .Q10H MARIANA Last Admin: 02/08/21 20:49 Dose: 100 mls/hr Documented by: Levothyroxine Sodium (Levothyroxine 100 Mcg Tablet) 100 mcg PO QAM MARIANA Ondansetron HCl (Ondansetron 2 Mg/Ml Sdv 2 Ml) 4 mg IVP Q6H PRN PRN Reason: NAUSEA AND VOMITING Pantoprazole Sodium (Pantoprazole Dr 40 Mg Tablet) 40 mg PO DAILY [facility] Vitals/I&O/Wt Last Vital Signs Temp 98.7 F 02/08/21 10:40 Pulse 61 02/09/21 09:15 Resp 25 H 02/09/21 09:15 BP 99/58 02/09/21 09:15 Pulse Ox 94 02/09/21 09:15 02/08/21 02/09/21 02/09/21 22:59 06:59 14:59 Intake Total 491.49 / 500.00 Balance 491.49 / 500.00 Weight last 48 hrs Weight 261 lb Physical Exam Narrative: EXAM NARRATIVE: GENERAL: The patient is alert and oriented times three. Not in any acute distress. Moderate obesity HEENT: No significant pallor, icterus or lymphadenopathy.Oral cavity: There are no mucous membrane lesions. NECK: Trachea appears to be central. No masses noted. No JVD or thyromegaly appreciated. RESPIRATORY: Chest is symmetrical. No intercostals muscle retraction or any accessory muscle activation. There is no chest wall tenderness. Breath sounds are heard bilaterally. No rales or rhonchi heard. No evidence of any consolidation. BREASTS: Deferred. HEART: The heart sounds are normal. No S3 or S4. Ejection systolic murmur grade 3/6 in the aortic area. No pericardial rub ABDOMEN: No vessel pulsations or distention. No tenderness. No organomegaly appreciated. Bowel sounds are normally heard. : Deferred. RECTAL: Deferred. LYMPHATIC: No lymphadenopathy noted in the neck or groin. EXTREMITIES: Trace edema with no cyanosis. No clubbing. Peripheral pulses are palpated in fairly good volume and amplitude MUSCULOSKELETAL: No acute joint deformities or swelling SKIN: There are no significant rashes or ecchymosis NEUROPSYCHIATRIC: The patient is alert and oriented x3. Appears to be in a good mood. No tremors or rigidity noted. Data : 02/09/21 03:39 02/09/21 03:39 Other Labs: Laboratory Last Values WBC 10.5 10^3/uL (4.0-10.0) H 02/09/21 03:39 RBC 3.80 10^6/uL (4.1-5.3) L 02/09/21 03:39 Hgb 11.6 g/dL (11.5-15.3) 02/09/21 03:39 Hct 36.7 % (37.0-47.0) L 02/09/21 03:39 MCV 96.6 fL (81-99) 02/09/21 03:39 MCH 30.5 pg (28.0-34.0) 02/09/21 03:39 MCHC 31.6 g/dL (30.0-36.0) 02/09/21 03:39 RDW 14.0 % (12.1-15.1) 02/09/21 03:39 Plt Count 129 10^3/cmm (130-400) L 02/09/21 03:39 MPV 11.7 fL (7.4-10.4) H 02/09/21 03:39 Neut % (Auto) 79.4 % 02/09/21 03:39 Lymph % (Auto) 10.7 % 02/09/21 03:39 [place] % (Auto) 9.0 % 02/09/21 03:39 Eos % (Auto) 0.3 % 02/09/21 03:39 Baso % (Auto) 0.2 % 02/09/21 03:39 Neut # (Auto) 8.34 10^3/uL (1.8-7.7) H 02/09/21 03:39 Lymph # (Auto) 1.1 10^3/uL (0.8-4.8) 02/09/21 03:39 [place] # (Auto) 1.0 10^3/uL (0.2-0.9) H 02/09/21 03:39 Eos # (Auto) 0.0 10^3/uL (0.0-0.8) 02/09/21 03:39 Baso # (Auto) 0.0 10^3/uL (0.0-0.1) 02/09/21 03:39 Nucleated RBC % (auto) 0 % 02/09/21 03:39 Nucleated RBCs # 0.0 /100WBC 02/09/21 03:39 Sodium 138 mmol/L (136-145) 02/09/21 03:39 Potassium 4.8 mmol/L (3.5-5.1) 02/09/21 03:39 Chloride 103 mmol/L (98-107) 02/09/21 03:39 Carbon Dioxide 27 mmol/L (22-29) 02/09/21 03:39 Anion Gap 12.8 (5-19) 02/09/21 03:39 BUN 35 mg/dL (8-23) H 02/09/21 03:39 Creatinine 1.3 mg/dL (0.5-0.9) H 02/09/21 03:39 GFR Calculation Not Reportable 02/09/21 03:39 Glucose 116 mg/dL (65-115) H 02/09/21 03:39 POC Glucose 155 mg/dL (70-110) H 02/08/21 21:58 Calculated Osmolality 295 mOsm/kg (285-295) 02/09/21 03:39 Calcium 8.3 mg/dL (8.5-10.5) L 02/09/21 03:39 Magnesium 2.8 mg/dL (1.7-2.3) H 02/08/21 16:05 Total Bilirubin 0.6 mg/dL (0.15-1.2) 02/09/21 03:39 AST 33 U/L (0-32) H 02/09/21 03:39 ALT 45 U/L (0-33) H 02/09/21 03:39 Alkaline Phosphatase 72 IU/L (35-105) 02/09/21 03:39 Creatine Kinase 106 U/L (26-192) 02/08/21 16:05 Troponin T Baseline 44 ng/L (0-10) H 02/08/21 16:05 Troponin T 120 Minute 42.39 ng/L (0-10) H 02/08/21 18:20 Delta Troponin T -1.61 ABS# (0-10) L 02/08/21 18:20 Troponin T Hi Sens 6Hr 33.94 ng/L (0-10) H 02/08/21 21:33 Troponin T Hi Sens 6Hr Delta -10.06 ng/L (0-12) L 02/08/21 21:33 NT-Pro-B Natriuret Pep 3270 pg/mL (0-450) H 02/08/21 16:05 Total Protein 6.6 g/dL (6.6-8.7) 02/09/21 03:39 Albumin 3.8 g/dL (3.5-5.2) 02/09/21 03:39 Globulin 2.8 g/dL (1.3-4.6) 02/09/21 03:39 TSH 0.82 uIU/mL (0.27-4.20) 02/08/21 16:05 Urine Color Yellow (Yellow) 02/08/21 15:08 Urine Appearance Sl hazy (CLEAR) 02/08/21 15:08 Urine pH 5 (5-7) 02/08/21 15:08 Ur Specific [place] 1.010 (1.005-1.030) 02/08/21 15:08 Urine Protein Neg (Negative) 02/08/21 15:08 Urine Glucose (UA) Norm (Normal) 02/08/21 15:08 Urine Ketones Negative (Negative) 02/08/21 15:08 Urine Blood Neg (Negative) 02/08/21 15:08 Urine Nitrate Positive (Negative) H 02/08/21 15:08 Urine Bilirubin Neg (Negative) 02/08/21 15:08 Urine Urobilinogen Norm mg/dL (Negative) 02/08/21 15:08 Ur Leukocyte Esterase Negative (Negative) 02/08/21 15:08 Urine RBC Rare /hpf (0-2) 02/08/21 15:08 Urine WBC Rare /hpf (0-5) 02/08/21 15:08 Ur Squamous Epith Cells 0-4 /hpf (0-5) H 02/08/21 15:08 Amorphous Sediment Not Reportable 02/08/21 15:08 Urine Bacteria 2+ /hpf (NONE) H 02/08/21 15:08 Hyaline Casts 5-10 /lpf H 02/08/21 15:08 SARS-CoV-2 Ag (Rapid) Negative (Negative) 02/08/21 14:31 Echo: My impression: Echocardiogram from 02/08/2021 Normal left ventricular size and systolic function, EF 75 %( visual). Mild left ventricular hypertrophy. No regional wall motion abnormalities. Grade III/IV diastolic dysfunction (restrictive filling pattern), severely elevated filling pressures. Mild aortic valve stenosis with a peak velocity of 2.7 m/s with, peak gradient of 29 mmHg and a mean gradient of 13 mmHg. Valve area was 2.1 cm squared. Thickened mitral valve. Mild mitral annular calcification. Trace tricuspid valve regurgitation. Estimated pulmonary artery peak systolic pressure of 25 mmHg There is no pericardial effusion. There are no intracardiac masses. No similar previous studies are available for comparison A&P Assessment and plan (1) Symptomatic bradycardia: Most likely the patient may have underlying sinus alise/AV alise disease. The dopamine dose is being tapered off. Once the patient is off the dopamine, may later ambulate on telemetry. I may go ahead and do an EKG today Status: Resolved (2) Acute on chronic diastolic (congestive) heart failure: Most likely related to hypertensive heart disease. Possibility of coronary ischemia causing this cannot be excluded. For further evaluation, a myocardial perfusion imaging would be appropriate. This may be done as an outpatient. (3) Benign essential hypertension with target blood pressure below 140/90: May start the patient on amlodipine 2.5 mg p.o. daily, if the blood pressure stays above 130 mmHg Status: Acute (4) Edema, peripheral: Patient has some features of diastolic heart failure. She may be started on a smaller dose of Lasix 20 mg daily with potassium 8 mg p.o. daily Status: Acute (5) GERD (gastroesophageal reflux disease): Patient is on Protonix. This may be continued. Status: Acute Qualifiers: Esophagitis presence: esophagitis presence not specified Qualified Code(s): K21.9 - Gastro-esophageal reflux disease without esophagitis (6) Hypothyroid: Current dose of the levothyroxine may be continued. Status: Acute Qualifiers: Hypothyroidism type: acquired Qualified Code(s): E03.9 - Hypothyroidism, unspecified (7) Chronic kidney disease: Patient may have underlying chronic renal disease. The baseline kidney function is no known. This need to be followed up. Status: Acute Qualifiers: Chronic kidney disease stage: unspecified stage Qualified Code(s): N18.9 - Chronic kidney disease, unspecified Additional A&P Information Need to encourage ambulation on telemetry. If the patient continues remain stable with no new symptoms, may be discharged home this afternoon. Patient need to be on event monitor for 30 days as outpatient. 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
--- NOTE | 2021-02-09 09:32 | ECG_ITS ---
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 Measurements Intervals [place] Rate: 58 P: -73 DC: 149 QRS: 10 QRSD: 86 T: 34 QT: 416 QTc: 409 Interpretive Statements SINUS BRADYCARDIA Compared to ECG 02/08/2021 19:35:34 No significant changes Electronically Signed On 02-11-2021 10:04:20 CDT by Janine Burris M.D. [email or web address] Toursmerit health natchezShareSquaremount st. mary hospitalApolo [employer]/store/OM/[id number]
--- NOTE | 2021-02-09 11:12 | ECG_ITS ---
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 Measurements Intervals Atkins Rate: 54 P: 82 CT: 224 QRS: 13 QRSD: 85 T: 37 QT: 431 QTc: 409 Interpretive Statements SINUS BRADYCARDIA WITH MARKED SINUS ARRHYTHMIA WITH FIRST DEGREE AV BLOCK Compared to ECG 02/09/2021 09:55:53 First degree AV block now present Electronically Signed On 02-11-2021 7:44:13 CDT by Janine Burris M.D. [email or web address] ([email or web address] [email or web address] va medical centerAgrisoma Biosciencesohio state east hospital.[employer]/store/OM/[id number]
--- NOTE | 2021-02-09 12:54 | PM.DCS ---
Discharge Providers Date of Admission: 02/08/21 12:41 Date of Discharge: February 09, 2021 Attending Provider at Admission: Bashir Reynoso MD Attending Provider at Discharge: Bashir Reynoso MD Primary Care Provider: Tonie Ruff NP Diagnoses at Discharge Discharge Diagnosis (1) Symptomatic bradycardia: Status: Acute (2) Acute on chronic diastolic (congestive) heart failure: Status: Acute (3) Benign essential hypertension with target blood pressure below 140/90: Status: Acute (4) Edema, peripheral: Status: Acute (5) GERD (gastroesophageal reflux disease): Status: Acute Qualifiers: Esophagitis presence: esophagitis presence not specified Qualified Code(s): K21.9 - Gastro-esophageal reflux disease without esophagitis (6) Hypothyroid: Status: Acute Qualifiers: Hypothyroidism type: acquired Qualified Code(s): E03.9 - Hypothyroidism, unspecified (7) Chronic kidney disease: Status: Acute Qualifiers: Chronic kidney disease stage: unspecified stage Qualified Code(s): N18.9 - Chronic kidney disease, unspecified Reason for Visit Reason for Visit: bradycardia Hospital Course Hospital Course Malena Pino is a 75-year-old white female who presented to the hospital with nausea, and was found to be significantly bradycardic. And her Actonel all held. She required dopamine. Cardiology evaluated her and wanted to see if she would require pacemaker placement following discontinuation of atenolol. After close monitoring overnight her dopamine was discontinued February 08. She continued to have a heart rate of approximately 60, sinus rhythm. Her junctional bradycardia had gone away. She no longer had any symptoms. Echocardiogram demonstrated 3/4 diastolic dysfunction but EF was preserved and no wall motion abnormalities. Cardiology believes she could be discharged home, with an event monitor in for follow-up for nuclear stress test as an outpatient. She will follow-up with cardiology and her primary care provider. She is to return for any worsening. TSH, electrolytes were checked and there were no significant abnormalities. Rapid Covid was negative. Physical Exam Narrative: EXAM NARRATIVE: General exam no apparent distress Neck is supple no lymphadenopathy or thyromegaly Cardiovascular regular rate and rhythm without murmur Lungs clear Abdomen is soft with positive bowel sounds Extremities no cyanosis clubbing or edema Discharge Data Data Completed and Pending: Completed Studies During Hospitalization Category Date Time Status XR chest 1V lisa ble [id number] Stat Exams 02/08/21 10:45 Completed XR chest 1V lisa ble [id number] Stat Exams 02/08/21 13:51 Completed CV. echo complete * [id number] Routine Ultrasound 02/08/21 05:00 Completed Pending at discharge Category Date Time Status CA cardiac event monitor Routine Exams 02/09/21 09:32 Ordered Sestamibi Stress Test Request Katie ne Exams 02/09/21 09:32 Ordered Urine Culture Rou azul [facility] 02/08/21 15:08 Received NM more perf SPECT r/s* [id number] Routin e Nuc Med 02/10/21 07:00 Ordered Labs from last 24 hours 02/09/21 02/09/21 02/08/21 03:39 03:39 21:58 WBC 10.5 H RBC 3.80 L Hgb 11.6 Hct 36.7 L MCV 96.6 MCH 30.5 MCHC 31.6 RDW 14.0 Plt Count 129 L MPV 11.7 H Neut % (Auto) 79.4 Lymph % (Auto) 10.7 [place] % (Auto) 9.0 Eos % (Auto) 0.3 Baso % (Auto) 0.2 Neut # (Auto) 8.34 H Lymph # (Auto) 1.1 [place] # (Auto) 1.0 H Eos # (Auto) 0.0 Baso # (Auto) 0.0 Nucleated RBC % (a uto) 0 Nucleated RBCs # 0.0 Sodium 138 Potassium 4.8 Chloride 103 Carbon Dioxide 27 Anion Gap 12.8 BUN 35 H Creatinine 1.3 H GFR Calculation Not Reportable Glucose 116 H POC Glucose 155 H Calculated Osmolal ity 295 Calcium 8.3 L Magnesium Total Bilirubin 0.6 AST 33 H ALT 45 H Alkaline Phosphata se 72 Creatine Kinase Troponin T Baselin e Troponin T 120 Min [place] Delta Troponin T Troponin T Hi Sens 6Hr Troponin T Hi Sens 6Hr Delta NT-Pro-B Natriuret Pep Total Protein 6.6 Albumin 3.8 Globulin 2.8 TSH Urine Color Urine Appearance Urine pH Ur Specific Gravit y Urine Protein Urine Glucose (UA) Urine Ketones Urine Blood Urine Nitrate Urine Bilirubin Urine Urobilinogen Ur Leukocyte Haley ase Urine RBC Urine WBC Ur Squamous Epith Cells Amorphous Sediment Urine Bacteria Hyaline Casts SARS-CoV-2 Ag (Rap id) 02/08/21 02/08/21 02/08/21 21:33 18:20 16:05 WBC RBC Hgb Hct MCV MCH MCHC RDW Plt Count MPV Neut % (Auto) Lymph % (Auto) [place] % (Auto) Eos % (Auto) Baso % (Auto) Neut # (Auto) Lymph # (Auto) [place] # (Auto) Eos # (Auto) Baso # (Auto) Nucleated RBC % (a uto) Nucleated RBCs # Sodium Potassium Chloride Carbon Dioxide Anion Gap BUN Creatinine GFR Calculation Glucose POC Glucose Calculated Osmolal ity Calcium Magnesium Total Bilirubin AST ALT Alkaline Phosphata se Creatine Kinase Troponin T Baselin e Troponin T 120 Min [place] 42.39 H Delta Troponin T -1.61 L Troponin T Hi Sens 6Hr 33.94 H Troponin T Hi Sens 6Hr Delta -10.06 L NT-Pro-B Natriuret Pep 3270 H Total Protein Albumin Globulin TSH Urine Color Urine Appearance Urine pH Ur Specific Gravit y Urine Protein Urine Glucose (UA) Urine Ketones Urine Blood Urine Nitrate Urine Bilirubin Urine Urobilinogen Ur Leukocyte Haley ase Urine RBC Urine WBC Ur Squamous Epith Cells Amorphous Sediment Urine Bacteria Hyaline Casts SARS-CoV-2 Ag (Rap id) 02/08/21 02/08/21 02/08/21 16:05 16:05 16:05 WBC 12.3 H RBC 4.17 Hgb 12.7 Hct 40.3 MCV 96.6 MCH 30.5 MCHC 31.5 RDW 14.1 Plt Count 143 MPV 11.4 H Neut % (Auto) 84.1 Lymph % (Auto) 8.1 [place] % (Auto) 6.1 Eos % (Auto) 0.5 Baso % (Auto) 0.4 Neut # (Auto) 10.32 H Lymph # (Auto) 1.0 [place] # (Auto) 0.8 Eos # (Auto) 0.1 Baso # (Auto) 0.1 Nucleated RBC % (a uto) 0 Nucleated RBCs # 0.0 Sodium 137 Potassium 4.4 Chloride 99 Carbon Dioxide 24 Anion Gap 18.4 BUN 38 H Creatinine 1.4 H GFR Calculation Not Reportable Glucose 139 H POC Glucose Calculated Osmolal ity 295 Calcium 8.7 Magnesium 2.8 H Total Bilirubin 0.8 AST 40 H ALT 51 H Alkaline Phosphata se 86 Creatine Kinase 106 Troponin T Baselin e 44 H Troponin T 120 Min [place] Delta Troponin T Troponin T Hi Sens 6Hr Troponin T Hi Sens 6Hr Delta NT-Pro-B Natriuret Pep Total Protein 7.6 Albumin 4.2 Globulin 3.4 TSH 0.82 Urine Color Urine Appearance Urine pH Ur Specific Gravit y Urine Protein Urine Glucose (UA) Urine Ketones Urine Blood Urine Nitrate Urine Bilirubin Urine Urobilinogen Ur Leukocyte Haley ase Urine RBC Urine WBC Ur Squamous Epith Cells Amorphous Sediment Urine Bacteria Hyaline Casts SARS-CoV-2 Ag (Rap id) 02/08/21 02/08/21 15:08 14:31 WBC RBC Hgb Hct MCV MCH MCHC RDW Plt Count MPV Neut % (Auto) Lymph % (Auto) [place] % (Auto) Eos % (Auto) Baso % (Auto) Neut # (Auto) Lymph # (Auto) [place] # (Auto) Eos # (Auto) Baso # (Auto) Nucleated RBC % (a uto) Nucleated RBCs # Sodium Potassium Chloride Carbon Dioxide Anion Gap BUN Creatinine GFR Calculation Glucose POC Glucose Calculated Osmolal ity Calcium Magnesium Total Bilirubin AST ALT Alkaline Phosphata se Creatine Kinase Troponin T Baselin e Troponin T 120 Min [place] Troponin T Troponin T Hi Sens 6Hr Troponin T Hi Sens 6Hr [place] NT-Pro-B Natriuret Pep Total Protein Albumin Globulin TSH Urine Color Yellow Urine Appearance Sl hazy Urine pH 5 Ur Specific Gravit y 1.010 Urine Protein Neg Urine Glucose (UA) Norm Urine Ketones Negative Urine Blood Neg Urine Nitrate Positive H Urine Bilirubin Neg Urine Urobilinogen Norm Ur Leukocyte Haley ase Negative Urine RBC Rare Urine WBC Rare Ur Squamous Epith Cells 0-4 H Amorphous Sediment Not Reportable Urine Bacteria 2+ H Hyaline Casts 5-10 H SARS-CoV-2 Ag (Rap id) Negative Vitals: Last Vital Signs Temp 98.7 F 02/08/21 10:40 Pulse 65 02/09/21 12:00 Resp 25 H 02/09/21 10:40 BP 115/55 02/09/21 12:00 Pulse Ox 98 02/09/21 12:00 Discharge Plan Discharge Patient Disposition: Home Condition: Stable Prescriptions: Continued albuterol sulfate 90 mcg/actuation HFA aerosol inhaler 2 puff inhalation Q6H PRN (Reason: Shortness Of Breath) RF: 0 furosemide [Lasix] 40 mg tablet 40 mg PO QAM RF: 0 potassium chloride 10 mEq tablet extended release 10 meq PO QAM RF: 0 pantoprazole 20 mg tablet,delayed release (DR/EC) 20 mg PO QAM RF: 0 levothyroxine 100 mcg tablet 100 mcg PO QAM RF: 0 Vitamin C 500 mg Tablet 500 mg PO BID RF: 0 magnesium oxide 400 mg magnesium Tablet 400 mg PO TID RF: 0 Glucosamine Chondroitin 550-30-1 mg Capsule 1 cap PO TID RF: 0 Vitamin D3 1 cap PO DAILY RF: 0 Flovent HFA 110 mcg/actuation HFA aerosol inhaler 2 inh inhalation BID PRN (Reason: Shortness Of Breath) RF: 0 Discontinued atenolol 50 mg tablet 50 mg PO QAM RF: 0 Discharge Orders: Discharge Order (Routine); Ordered 02/09/21 Ordered By: Bashir Reynoso Other Ambulatory Orders: Sestamibi Stress Test Request (Routine) Timeframe: 1 Week Facility: [facility] - Location: Cardiac Diagnostic Laboratory Ordered By: Bashir Reynoso CA cardiac event monitor (Routine) Timeframe: 1 Day Facility: [facility] - Location: Cardiac Diagnostic Laboratory Ordered By: Bashir Reynoso Referrals: Tonie Ruff NP [Primary Care Provider] - 4-7 days Inocencio Hicks MD [Physician] - 1 week Discharge Diet: Cardiac Discharge Activity: Increase activity as tolerated Patient Instructions: Opioid Safety Activity Restrictions/Additional Instructions: Do not take any atenolol. Event monitor on discharge Nuclear stress test as an outpatient Follow-up with cardiology 1 week Return for any worsening. Discharge Attestations Time Spent in Discharge Care*: greater than 30 min Quality Metrics Clinical Quality Measures During this hospital stay, did patient experience: None Coding Level of Care Code Acute Ch[facility] note Diagnoses Symptomatic bradycardia R00.1 Acute on chronic diastolic (congestive) heart failure I50.33 Benign essential hypertension with target blood pressure below 140/90 I10 Edema, peripheral R60.9 GERD (gastroesophageal reflux disease) K21.9 Esophagitis presence: esophagitis presence not specified Hypothyroid E03.9 Hypothyroidism type: acquired Chronic kidney disease N18.9 Chronic kidney disease stage: unspecified stage
--- NOTE | 2021-02-10 07:04 | DCPLANNER ---
health promotion manager had message to schedule an out patient stress test for patient, and a holter monitor. health promotion manager faxed signed order to centralized scheduling [facility] for the out patient tests, they will call patient with appointment information.
--- NOTE | 2021-02-11 08:51 | PC.SOCIAL ---
Dr Bj Reynoso called to indicate urine culture returned showing an organism and he feels should treat with Macrobid 100mg BID for 5 days. Called patient to update her but she is adamant that a urine specimen was not collected on her and she does not have any symptoms per her report. She would like communication to be given to her PCP since they discussed this briefly yesterday and let Tonie PCP decide if she should recollect a urine specimen. Called Tonie office in [facility] and discussed with nurse Aurea. Sent micro report and Aurea indicates this was discussed yesterday between Tonie and patient. She will make sure Tonie reviews and makes decision regarding whether a new specimen should be collected. Updated Dr Bj Reynoso. Received confirmation that fax was transmitted successfully to Tonie PCP.
--- NOTE | 2021-02-16 08:13 | DCPLANNER ---
Patient has an outpatient stress test scheduled for January at 1:00. Centralized scheduling called patient with appointment information.
--- NOTE | 2021-03-02 15:32 | DCPLANNER ---
Patient had a stress test scheduled for 02.25.21, this was cancelled per patient request. commercial center manager called [facility], spoke with Carla to confirm if an appointment had been scheduled for patient. commercial center manager spoke with Carla was told that clinic has tried to reach patient, and has not been able to reach patient to schedule an appointment.
== END 2021-02-09 15:29 | disposition home or self-care (01) | DRG 308 ==
LOC: ER 12:06 → ER IP 20:17
PROVIDERS: Internal Medicine Cardiovascular Disease; Admitting Provider Internal Medicine; Emergency Provider Family Medicine; PCP Nurse Practitioner; Visit Provider Internal Medicine
DX: I49.5 Sick sinus syndrome (principal); I50.33 Acute on chronic diastolic (congestive) heart failure; I13.0 Hypertensive heart and chronic kidney disease with heart failure and stage 1 through stage 4 chronic kidney disease, or unspecified chronic kidney disease; Z68.41 Body mass index [BMI] 40.0-44.9, adult; M19.90 Unspecified osteoarthritis, unspecified site; K21.9 Gastro-esophageal reflux disease without esophagitis; M79.7 Fibromyalgia; Z20.822 Contact with and (suspected) exposure to COVID-19; N18.9 Chronic kidney disease, unspecified; E03.9 Hypothyroidism, unspecified; E66.01 Morbid (severe) obesity due to excess calories; I35.0 Nonrheumatic aortic (valve) stenosis; R60.9 Edema, unspecified; J45.909 Unspecified asthma, uncomplicated; Z90.49 Acquired absence of other specified parts of digestive tract; Z98.890 Other specified postprocedural states; Z79.890 Hormone replacement therapy; Z86.16 Personal history of COVID-19; Z81.8 Family history of other mental and behavioral disorders
CPT/HCPCS: 36415; 36416; 71045; 80053; 81001; 82550; 82962; 83735; 83880; 84443; 84484; 85025; 87077; 87086; 87186; 87426; 93005; 93271; 93306; 96365; 96366; 96372; 99291; J1265; J1650; J2550; J7030; J7050

== ENCOUNTER → 2022-12-07 17:36 | Outpatient (BNVA) | payer MEDICARE, SELFPAY | PROVIDERS: PCP Nurse Practitioner; Visit Provider Nurse Practitioner Family | DX: S90.31XA Contusion of right foot, initial encounter (principal); W20.8XXA Other cause of strike by thrown, projected or falling object, initial encounter | CPT/HCPCS: 73630 ==